=== PATIENT | female | born 1975 | race Two or more races ===

== ENCOUNTER 2016-09-30 10:58 | Emergency (ER) | payer MEDICAID ==
[~2016-09-30] VITALS: Ht 167.6 cm; Wt 79.9 kg
[2016-09-30 11:28] VITALS: BP 124/77
[2016-09-30] MEDS ORDERED: ASPI-1035 PO (11:28)
[2016-09-30] MEDS ORDERED: P-EP-91 PO (11:28)
== END 2016-09-30 12:57 | disposition home or self-care (01) ==
LOC: ER 10:58
DX: J06.9 Acute upper respiratory infection, unspecified (principal); J32.1 Chronic frontal sinusitis; R03.0 Elevated blood-pressure reading, without diagnosis of hypertension; Z88.2 Allergy status to sulfonamides; Z98.890 Other specified postprocedural states
CPT/HCPCS: 99283